=== PATIENT | male | born 1960 | race Caucasian/White ===

== ENCOUNTER → 2020-05-10 | Outpatient (CLI) | payer OTHER ==
[~2020-05-10] MED LIST: ALLEGRA ALLERG180 MG PO; ASPIRIN81 M2 PO; CELEBREX 200 M200 M1 PO; LIPITOR 20 MG T20 M1 PO; NORCO 5-325 TA1 EACH PO; NORVASC10 MG PO; PREDNISONE 20 M20 MG; PRINIVIL20 MG PO
== END ==
LOC: SJCVCIMAG 09:55
PROVIDERS: ATTEND Family Medicine
DX: I49.3 Ventricular premature depolarization (principal); Z79.899 Other long term (current) drug therapy